=== PATIENT | female | born 1990 | race Caucasian/White ===

== ENCOUNTER 2019-03-22 12:04 | Outpatient (CLI) | payer OTHER ==
[~2019-03-22] VITALS: Ht 165.1 cm; Wt 85.0 kg
[2019-03-22] MEDS ORDERED: PRENTAB9 PO (12:54)
[2019-03-22] MEDS ORDERED: IBUPPOW25 (12:54)
== END 2019-03-22 14:55 | disposition home or self-care (01) ==
LOC: M LDO 12:04
PROVIDERS: ATTEND Advanced Practice Midwife
DX: O26.892 Other specified pregnancy related conditions, second trimester (principal); N93.0 Postcoital and contact bleeding; Z3A.23 23 weeks gestation of pregnancy
CPT/HCPCS: G0378; G0463

== ENCOUNTER 2019-06-17 10:12 | Outpatient (CLI) | payer OTHER ==
[~2019-06-17] VITALS: Ht 165.1 cm; Wt 89.1 kg
[~2019-06-17 10:12] MED LIST: IBUPPOW25; PRENTAB9 PO
[2019-06-17 10:28] VITALS: BP 142/85
[2019-06-17 10:40] VITALS: BP 133/79
[2019-06-17 10:58] VITALS: BP 123/76
[2019-06-17 11:02] VITALS: BP 125/79
[2019-06-17] MEDS ORDERED: LACTATED RINGER'S 1000 ML IV STA (11:04)
[2019-06-17 12:41] VITALS: BP 129/67
[2019-06-17 12:56] VITALS: BP 114/63
--- NOTE | 2019-06-17 13:05 | IPNPDOC ---
Text Note Date of Service The patient was seen on 06/17/19. NOTE Triage Note Nhi is a 28yo with SIUP at 36w2d by lmp c/w 6wk u/s presenting for abdominal/pelvic discomfort. She also notes that since Thanks she has had episodes of vomiting and diarrhea. She notes that the pain in her abdomen is mostly over the pubic bone and she feels pelvic pressure. She also feels occasional ctx. She has been tolerating food recently, had one loose stool yesterday. No fevers/chills. 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 She received 1L of LR IVF in triage and her ctx spaced and uterine irritability resolved. SCE 1/thick/high. Reassuring status. Normal vitals w/benign exam. Plan: -safe for discharge home -keep next routine OB appt on Jun 25 -warm showers, comfortable positioning -encouraged PO hydration Dr. Sherice Navarro MD VS,[place], I+O VS, [place], I+O Vital Signs Date Time Temp Pulse Resp B/P (MAP) Pulse Ox O2 Delivery O2 Flow Rate FiO2 06/17/19 12:56 97.2 88 18 114/63 (80) Sherice Navarro MD Jun 17, 2019 13:05
== END 2019-06-17 13:15 | disposition home or self-care (01) ==
LOC: M LDO 10:12
PROVIDERS: ATTEND Obstetrics & Gynecology
DX: O26.893 Other specified pregnancy related conditions, third trimester (principal); R10.30 Lower abdominal pain, unspecified; O21.2 Late vomiting of pregnancy; O62.2 Other uterine inertia; Z3A.36 36 weeks gestation of pregnancy
CPT/HCPCS: 59025; G0378; G0463

== ENCOUNTER 2019-06-25 10:12 | Outpatient (CLI) | payer OTHER ==
[~2019-06-25] VITALS: Ht 165.1 cm; Wt 89.2 kg
[2019-06-25 10:29] VITALS: BP 138/83
[2019-06-27] MEDS ORDERED: DOCU100C16 PO (10:58)
[2019-06-27] MEDS ORDERED: IBUP-1022 PO (10:58)
[2019-06-27] MEDS ORDERED: ACET1TAB55 PO (10:58)
== END 2019-06-25 11:25 | disposition home or self-care (01) ==
LOC: M LDO 10:12
PROVIDERS: ATTEND Obstetrics & Gynecology
DX: O47.1 False labor at or after 37 completed weeks of gestation (principal); Z3A.37 37 weeks gestation of pregnancy
CPT/HCPCS: 59025; G0378; G0463